=== PATIENT | male | born 1970 | race Caucasian/White ===

== ENCOUNTER 2022-08-28 21:50 | Inpatient (IN) | payer OTHER ==
[~2022-08-28] VITALS: Ht 165.1 cm; Wt 95.3 kg
[2022-08-28 22:41] LABS: CLARITY URINE CLEAR (CLEAR); COLOR URINE YELLOW (YELLOW); KETONES URINE TRACE (NEGATIVE); LEUKOCYTE ESTERASE URINE NEGATIVE (NEGATIVE); NITRITE URINE NEGATIVE (NEGATIVE); OCCULT BLOOD URINE NEGATIVE (NEGATIVE); PH URINE 6.5 (4.5-8.0); PROTEIN URINE NEGATIVE (NEGATIVE); SPECIFIC GRAVITY URINE 1.019 (1.005-1.030); UROBILINOGEN URINE 0.2 E.U./dL (0.2-1.0)
[2022-08-28] MEDS ORDERED: MORPHINE SULFATE 4 MG/ML CPJ (NOT FOR IM USE) IV ONE (23:00)
[2022-08-28 23:07] LABS: BASOPHILS % 0.7 % (0.0-2.0); HEMATOCRIT. 44.6 % (42.0-52.0); HEMOGLOBIN. 15.7 g/dL (14.0-18.0); LYMPHOCYTES % 24.9 % (20.0-50.0); MEAN CORPUSCULAR HEMOGLOBIN 32.6 pg (28.0-32.0); MEAN CORPUSCULAR VOLUME 92.4 fL (80.0-94.0); MEAN PLATELET VOLUME 8.8 fl (7.4-10.4); MONOCYTES % 7.5 % (2.0-8.0); NEUTROPHILS % 65.9 % (40.0-76.0); PLATELET 292 x1000/uL (130-400); RED BLOOD CELL COUNT 4.83 mill/uL (4.7-6.1); RED CELL DISTRIBUTION WIDTH 13.5 % (11.6-14.6)
[2022-08-28 23:15] LABS: CHLORIDE 103 mEq/L (98-107)
[2022-08-28] MEDS ORDERED: ONDANSETRON HCL 4MG/2ML INJ IV ONE (23:45)
[2022-08-29] MEDS ORDERED: MORPHINE SULFATE 4 MG/ML CPJ (NOT FOR IM USE) IV ONE (00:45)
[2022-08-29] MEDS ORDERED: CLONIDINE 0.1MG TABLET PO PRN (03:45)
[2022-08-29] MEDS ORDERED: DIPHENHYDRAMINE 50MG/ML VIAL IV PRN (03:45)
[2022-08-29] MEDS ORDERED: SODIUM CHLORIDE 0.9% 1,000 ML IV SCH (03:45)
[2022-08-29] MEDS ORDERED: ZOLPIDEM TARTRATE 5MG TABLET PO PRN (03:45)
[2022-08-29] MEDS ORDERED: ACETAMINOPHEN 325MG TABLET PO PRN ×2 (03:45)
[2022-08-29] MEDS ORDERED: MAGNESIUM/ALUMINUM HYDROXIDE/SIMETHICONE 30ML UDC PO PRN (03:45)
[2022-08-29] MEDS ORDERED: ONDANSETRON HCL 4MG/2ML INJ IV PRN (03:45)
[2022-08-29] MEDS ORDERED: MORPHINE SULFATE 4 MG/ML CPJ (NOT FOR IM USE) IV PRN (03:45)
[2022-08-29] MEDS ORDERED: NALOXONE HCL 0.4MG/ML VIAL IV PRN (04:00)
[2022-08-29 05:17] LABS: BASOPHILS % 0.3 % (0.0-2.0); HEMATOCRIT. 44.2 % (42.0-52.0); HEMOGLOBIN. 15.4 g/dL (14.0-18.0); LYMPHOCYTES % 11.1 % (20.0-50.0); MEAN CORPUSCULAR VOLUME 92.1 fL (80.0-94.0); MEAN PLATELET VOLUME 9.2 fl (7.4-10.4); NEUTROPHILS % 82.6 % (40.0-76.0); PLATELET 272 x1000/uL (130-400); RED CELL DISTRIBUTION WIDTH 13.6 % (11.6-14.6)
[2022-08-29 05:25] LABS: CHLORIDE 103 mEq/L (98-107)
[2022-08-29] MEDS: PANTOPRAZOLE SODIUM 40 MG/VIAL IV SCH ×2 (09:48→10:00)
[2022-08-29] MEDS: AMLODIPINE 5MG TABLET PO SCH ×2 (10:01→21:00)
[2022-08-29 12:00] VITALS: BP 114/78
[2022-08-29 16:00] VITALS: BP 111/76
[2022-08-29 20:00] VITALS: BP 101/62
[2022-08-30 04:00] VITALS: BP 107/56
[2022-08-30 08:00] VITALS: BP 140/93
[2022-08-30 09:50] VITALS: BP 114/70
[2022-08-30] MEDS: PANTOPRAZOLE SODIUM 40 MG/VIAL IV SCH (09:54)
[2022-08-30] MEDS: AMLODIPINE 5MG TABLET PO SCH (09:54)
== END 2022-08-30 11:30 | disposition home or self-care (01) | DRG 446 ==
LOC: ER 21:50 → EDBEDREQ 08-29 01:17 → 6EST 08-29 03:37 → ENRESERV 08-29 10:49 → ER 08-29 11:13
PROVIDERS: ADMIT Internal Medicine; ATTEND Internal Medicine
DX: K80.20 Calculus of gallbladder without cholecystitis without obstruction (principal); K76.0 Fatty (change of) liver, not elsewhere classified; I10 Essential (primary) hypertension; F10.10 Alcohol abuse, uncomplicated; F17.200 Nicotine dependence, unspecified, uncomplicated
CPT/HCPCS: 36415; 74176; 76700; 80053; 81003; 83605; 84484; 85025; 99285; C9113; J2270; J2405

== ENCOUNTER 2022-10-15 23:28 | Emergency (ER) | payer OTHER ==
[~2022-10-15] VITALS: Ht 165.1 cm; Wt 95.3 kg
[2022-10-16 01:04] LABS: BASOPHILS % 0.4 % (0.0-2.0); EOSINOPHILS % 0.3 % (0.0-5.0); HEMATOCRIT. 44.5 % (42.0-52.0); HEMOGLOBIN. 15.6 g/dL (14.0-18.0); LYMPHOCYTES % 13.1 % (20.0-50.0); MEAN CORPUSCULAR HEMOGLOBIN 32.7 pg (28.0-32.0); MEAN CORPUSCULAR VOLUME 93.4 fL (80.0-94.0); MEAN PLATELET VOLUME 8.9 fl (7.4-10.4); MONOCYTES % 6.7 % (2.0-8.0); NEUTROPHILS % 79.5 % (40.0-76.0); PLATELET 257 x1000/uL (130-400); RED BLOOD CELL COUNT 4.76 mill/uL (4.7-6.1); RED CELL DISTRIBUTION WIDTH 13.2 % (11.6-14.6)
[2022-10-16 01:10] LABS: CLARITY URINE TURBID (CLEAR); COLOR URINE YELLOW (YELLOW); KETONES URINE NEGATIVE (NEGATIVE); LEUKOCYTE ESTERASE URINE NEGATIVE (NEGATIVE); NITRITE URINE NEGATIVE (NEGATIVE); OCCULT BLOOD URINE NEGATIVE (NEGATIVE); PROTEIN URINE TRACE (NEGATIVE); UROBILINOGEN URINE 0.2 E.U./dL (0.2-1.0)
[2022-10-16 01:14] LABS: CHLORIDE 104 mEq/L (98-107)
[2022-10-16] MEDS ORDERED: HYDR-4001 MT (03:21)
[2022-10-16] MEDS ORDERED: HYDROCODONE/ACETAMINOPHEN 5/325MG TABLET PO ONE (03:30)
[2022-10-16 04:15] VITALS: BP 134/85
== END 2022-10-16 04:16 | disposition home or self-care (01) ==
LOC: ER 23:28
DX: K80.50 Calculus of bile duct without cholangitis or cholecystitis without obstruction (principal)
CPT/HCPCS: 36415; 80053; 81003; 85025; 99283